=== PATIENT | male | born 1990 | race Two or more races ===

== ENCOUNTER 2017-12-11 12:47 | Emergency (ER) | payer OTHER ==
--- NOTE | 2017-12-11 13:38 | RAD ---
INDICATION: Swelling and deformity at the RIGHT hand following injury playing basketball. COMPARISON: No relevant prior exams available on the [facility] PACS for comparison. TECHNIQUE: AP and lateral hand views RIGHT hand. REPORT: Diaphyseal fractures of the fourth and fifth metacarpals with one cortex width lateral displacement at the fourth metacarpal and 1 bone width dorsal displacement at the fifth metacarpal. Mild apex dorsal angulation of both fractures. Overlying soft tissue swelling. Normal articular alignment. IMPRESSION: Nonarticular fourth and fifth metacarpal fractures as described.
[2017-12-11] MEDS ORDERED: oxyCODONE/Acetamin 5/325 MG* TAB PO ONE (14:54)
--- NOTE | 2017-12-11 14:59 | ED ---
Upper Extremity Pain - HPI Summary HPI Summary: 27-year-old male presents with right hand injury today. He is playing basketball and was hit by an elbow in the fourth and fifth metacarpal. He has swelling to the area. Unable to completely move fourth and fifth metacarpal. Was given Toradol prior to arrival. Pain is a 10 of 10. No previous injury to this area. Has history of asthma. No other injury. No open wound. He is right-handed. He is currently in [facility]. - History of Current Complaint Chief Complaint: EDExtremityUpper Stated Complaint: RT HAND INJURY Time Seen by Provider: 12/11/17 13:30 - Allergies/Home Medications Allergies/Adverse Reactions: Allergies Allergy/AdvReac Type Severity Reaction Status Date / Time No Known Allergies Allergy Verified 12/11/17 13:13 Home Medications: Home Medications NK [No Home Medications Reported] 12/11/17 [History Confirmed 12/11/17] PMH/Surg Hx/FS Hx/Imm Hx Endocrine/Hematology History: Denies: Hx Anticoagulant Therapy Respiratory History: Reports: Hx Asthma Infectious Disease History: No Infectious Disease History: Denies: Traveled Outside the [place] in Last 30 Days - Family History Known Family History: Positive: Diabetes - Social History Alcohol Use: Occasionally Substance Use Type: Reports: None Review of Systems Negative: Fever Negative: Chest Pain Negative: Shortness Of Breath Positive: Myalgia - right hand All Other Systems Reviewed And Are Negative: Yes Physical Exam Triage Information Reviewed: Yes Vital Signs On Initial Exam: Initial Vitals Temp Pulse Resp BP Pulse Ox 97.8 F 54 16 154/96 99 12/11/17 13:09 12/11/17 13:09 12/11/17 13:09 12/11/17 13:12/11/17 13:09 Vital Signs Reviewed: Yes Appearance: Positive: Well-Appearing Skin: Positive: Warm, Dry Head/Face: Positive: Normal Head/Face Inspection Eyes: Positive: Normal, Conjunctiva Clear ENT: Positive: Pharynx normal Respiratory/Lung Sounds: Positive: Clear to Auscultation, Breath Sounds Present Cardiovascular: Positive: Normal, RRR Musculoskeletal: Positive: Limited @, Edema Right - 4-5 metacarpal, Other - Good pulses, capillary refill less than 2 seconds, sensation grossly intact Neurological: Positive: Normal Psychiatric: Positive: Normal Procedures - Splinting Right Location: right hand Hand-Made Type: orthoglass Splint: ulnar Pre-Proc Neuro Vasc Exam: normal Post-Proc Neuro Vasc Exam: normal Diagnostics - Vital Signs Vital Signs Temp Pulse Resp BP Pulse Ox 12/11/17 13:09 97.8 F 54 16 154/96 99 - Laboratory Lab Statement: Any lab studies that have been ordered have been reviewed, and results considered in the medical decision making process. - Radiology hand Xray Interpretation: Positive (See Comments) - IMPRESSION: Nonarticular fourth and fifth metacarpal fractures as described. Radiology Interpretation Completed By: Radiologist Course/Dx - Course Course Of Treatment: 27-year-old male presents with right hand injury today. He is playing basketball and was hit by an elbow in the fourth and fifth metacarpal. He has swelling to the area. Unable to completely move fourth and fifth metacarpal. Was given Toradol prior to arrival. Pain is a 10 of 10. No previous injury to this area. Has history of asthma. No other injury. No open wound. On exam edema noted to fourth and fifth metacarpal with decreased range of motion. Neurovascular intact. X-ray shows fracture for diminished metacarpal. Placed in an ulnar gutter. Will follow-up with orthopedic. Patient understands agrees the plan. - Diagnoses Differential Diagnosis/HQI/PQRI: Positive: Fracture (Closed), Strain, Sprain Provider Diagnoses: Metacarpal bone fracture Discharge - Sign-Out/Discharge Documenting (check all that apply): Discharge/Admit/Transfer - Discharge Plan Condition: Good Disposition: HOME Patient Education Materials: Hand Fracture (ED) Referrals: Lorelei Pope DO [Primary Care Provider] - Sharron Holder MD [Medical Doctor] - Additional Instructions: Keep elbow in sling as needed Keep splint on area and keep dry follow up with ortho Use ibuprofen for pain every 6 hours Ice, elevate Return to ED if develop any new or worsening symptoms - Billing Disposition and Condition Condition: GOOD Disposition: Home
[2017-12-11 15:24] VITALS: BP 132/74
== END 2017-12-11 15:24 | disposition home or self-care (01) ==
LOC: ED 12:47
DX: S62.304A Unspecified fracture of fourth metacarpal bone, right hand, initial encounter for closed fracture (principal); S62.306A Unspecified fracture of fifth metacarpal bone, right hand, initial encounter for closed fracture; W50.0XXA Accidental hit or strike by another person, initial encounter; Y93.67 Activity, basketball; Y92.9 Unspecified place or not applicable
CPT/HCPCS: 99282; A9270-GY

== ENCOUNTER 2017-12-25 08:44 | Day surgery (SDC) | payer OTHER ==
[~2017-12-25 08:44] MED LIST: Buffered Lidocaine 0.9% SYRIN* 5 ML/SYR SYRINGE INTRADERM ONE; Dexamethasone IV* 4 MG/ML 1 ML (4 MG) IV SLOW PU ONE; Famotidine IV* 10 MG/ML 2 ML (20 mg) IV ONE; Midazolam* 1 MG/ML 2 ML VIAL (2 MG) ONE; fentaNYL* 50 MCG/ML 2 ML VIAL (100 MCG VIAL) ONE
[2017-12-25] MEDS ORDERED: Bupivacaine 0.5% SDV PF* 30ML VIAL ONE (09:22)
[2017-12-25] MEDS ORDERED: Famotidine IV* 10 MG/ML 2 ML (20 mg) ONE (09:49)
[2017-12-25] MEDS ORDERED: ceFAZolin 2 GM PREMIX (*) 2 GM/50 ML BAG IVPB ONE (09:49)
[2017-12-25] MEDS ORDERED: Dexamethasone IV* 4 MG/ML 1 ML (4 MG) ONE (09:49)
[2017-12-25] MEDS ORDERED: Buffered Lidocaine 0.9% SYRIN* 5 ML/SYR SYRINGE ONE (09:50)
[2017-12-25] MEDS ORDERED: Metoclopramide IV* 5 MG/ML 2 ML VIAL ONE (10:55)
[2017-12-25] MEDS ORDERED: Propofol* 10 MG/ML 20 ML BTL IV PUSH ONE (10:55)
[2017-12-25] MEDS ORDERED: Ketorolac INJ* 30 MG/ML 1 ML VIAL ONE (10:55)
[2017-12-25] MEDS ORDERED: Lidocaine 2% PF * 5 ML VIAL ONE (11:11)
[2017-12-25] MEDS ORDERED: fentaNYL* 50 MCG/ML 2 ML VIAL (100 MCG VIAL) ONE ×3 (11:50→13:37)
[2017-12-25] MEDS ORDERED: Ondansetron ODT TAB* 4 MG PO PRN (12:04)
[2017-12-25] MEDS ORDERED: Naloxone* 0.4 MG/ML 1 ML VIAL IV PRN (12:04)
[2017-12-25] MEDS: fentaNYL* 50 MCG/ML 2 ML VIAL (100 MCG VIAL) IV PRN ×4 (13:18→14:39)
[2017-12-25] MEDS ORDERED: HYDROcodone/ACETAMIN 5-325 MG* 1 TAB ONE ×2 (13:21→13:37)
[2017-12-25 15:04] VITALS: BP 138/81
--- NOTE | 2017-12-26 11:10 | RAD ---
CPT II Codes: G9500 INDICATION: Fracture right fourth and fifth metacarpals TECHNIQUE: Intraoperative fluoroscopy was provided during plate and screw fixation of the fourth and fifth metacarpals. FINDINGS: 4 spot films depict plate and screw fixation of the fourth and fifth right metacarpals. Fluoroscopy time: 10 seconds IMPRESSION: As above.
--- NOTE | 2017-12-28 08:39 | OP ---
DATE OF OPERATION: 12/25/17 - [facility] DATE OF : 89 SURGEON: Jeremy Long MD SENIOR GRAPHIC DESIGNER: JOSIAH Taylor ANESTHESIOLOGIST: Dr. Durbin. ANESTHESIA: General. PRE-OP DIAGNOSIS: Right displaced fourth and fifth metacarpal shaft fractures. POST-OP DIAGNOSIS: Right displaced fourth and fifth metacarpal shaft fractures. OPERATIVE PROCEDURE: 1. Open reduction internal fixation of right fourth metacarpal shaft fracture. 2. Open reduction internal fixation of right fifth metacarpal shaft fracture. INDICATIONS: Jeremy is 27 years old. He in an inmate in skilled nursing system. He had an injury when he was playing basketball and he fell and fractured the hand , came to the emergency room where displaced fractures were noted. He followed up with me in the clinic. We discussed attempted closed reduction and casting. He said he wanted it perfect and I told him that if we did plate fixation that he could begin early motion, no lifting, pushing, or pulling but early motion and should heal up and do very well complication. We did talk about risks including risk of stiffness, risk of tendon adhesions, risk of infection of nonunion, malunion. He wanted to proceed. ESTIMATED BLOOD LOSS: 2 mL. COMPLICATIONS: None. FINDINGS: See above and below. DESCRIPTION OF PROCEDURE: Jeremy was seen in the preoperative holding area. The correct side, site, and procedure were identified. We came back to the operating room where the arm was prepped and draped in the usual fashion. A time-out was performed. I began by exsanguinating the arm with the Esmarch and the tourniquet was inflated to 250 mmHg. I then made a longitudinal incision between the fourth and fifth metacarpals. Dissection was carried down. The traversing dorsal ulnar sensory nerve was identified and retracted. The interval between the EDC and the EDM tendon was developed and this was used for fixation of both fractures. I did have to complete the split between the EDC and EDM for about a couple of centimeters distally. I then made a longitudinal incision over the periosteum of the fourth metacarpal, which had a small rent in it at the fracture site. I then made a longitudinal incision over the fifth metacarpal periosteum. Subperiosteal flaps were raised off of both metacarpals. Once I had the fractures exposed, I delivered the bone edges and I cleaned off all the soft tissue and fracture hematoma. I then first open reduced the fourth metacarpal shaft and got anatomic reduction. I brought in my straight plate from the [employer] variable angle handset. This was fixed with 1 screw proximally , 1 screw distally after I trimmed to make it an 8- hole plate. I then open reduced the fifth metacarpal shaft and placed another plate in place and fixed it with 1 screw proximally and 1 screw distally. Again this was trimmed to the appropriate length, which I believe to 8 holes. I then checked my fluoroscopic imaging, thing were looking anatomic. The plates were in good location. I then placed a couple more screws distally and proximally in both plates. The most proximal screws through the metaphysis were locking screws. I got final fluoroscopic imaging. The reduction looked excellent. Clinically, the hand was in very nice position. We irrigated out the wound. The periosteum was closed deeply to fully cover both plates with 4-0 Prolene suture. The split between the EDM and EDC tendons distally was repaired with some 4-0 Prolene figure- of-eight sutures. The skin was then closed with a Monocryl stitch and Steri- Strips. The area was infiltrated with 0.25% plain Marcaine. An ulnar gutter splint was applied grabbing the middle, ring, and small fingers. Tourniquet was deflated and he was taken to the recovery room in stable condition. [id number]/CPS #: [id number]
== END 2017-12-25 15:30 ==
LOC: OR 08:44
PROVIDERS: ATTEND Orthopaedic Surgery Hand Surgery
DX: S62.324A Displaced fracture of shaft of fourth metacarpal bone, right hand, initial encounter for closed fracture (principal); S62.326A Displaced fracture of shaft of fifth metacarpal bone, right hand, initial encounter for closed fracture; Z72.0 Tobacco use; J45.909 Unspecified asthma, uncomplicated; W18.39XA Other fall on same level, initial encounter; Y93.67 Activity, basketball; Y92.310 Basketball court as the place of occurrence of the external cause
CPT/HCPCS: C1713; C1776; J0690; J1100; J1885; J2250; J2704; J2765; J3010